=== PATIENT | male | born 1960 | race Caucasian/White ===

== ENCOUNTER → 2020-06-02 14:53 | Outpatient (CLI) | payer OTHER, SELFPAY ==
--- NOTE | 2020-06-02 | DI.RAD.S_ITS ---
PROCEDURE: XR HIP W PEL IF DONE LT MIN 4V INDICATIONS: primary generalized arthritis TECHNIQUE: AP pelvis with lateral view(s) of the bilateral hip(s). COMPARISON: None. FINDINGS: Bones: No fractures or dislocations. Pelvic ring appears intact. No suspicious bony lesions. There is severe bilateral degenerative hip joint space narrowing, right greater than left. Areas of subchondral sclerosis as well as lucency are present. There is minimal appearance of femoral head flattening notable on the right. Soft tissues: The visualized bowel gas pattern is normal. No suspicious soft tissue calcifications. 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 Dictated by: Maine Andrade M.D. on 06/02/2020 at 16:53 Approved by: Maine Andrade M.D. on 06/02/2020 at 16:53
--- NOTE | 2020-06-02 | DI.RAD.S_ITS ---
PROCEDURE: XR LUMBAR SPINE 2-3V INDICATIONS: primary generalized arthritis TECHNIQUE: 3 views of the lumbar spine were acquired. COMPARISON: [facility], , L-SPINE 2-3 VIEWS, 08/30/2011, 15:47. FINDINGS: Bones: 5 xsx-obh-[id number] vertebrae are present. There is multilevel trace retrolisthesis throughout the lumbar spine. Moderate to severe foraminal narrowing is present at L5-S1 as well as L4-5. Mild osteophytes are noted at multiple levels most severe at L1, L2 and L5. Overall appearance is minimally progressive compared to 2012. No vertebral body compression fractures. No suspicious bony lesions. Soft tissues: Overlying bowel gas pattern is normal. No suspicious soft tissue calcifications. IMPRESSION: Minimal progression of degenerative change most notable at L4-5 and L5-S1. Dictated by: Maine Andrade M.D. on 06/02/2020 at 16:54 Approved by: Maine Andrade M.D. on 06/02/2020 at 16:55
== END ==
PROVIDERS: PCP Physician Assistant Medical; Referring Provider Internal Medicine; Visit Provider Internal Medicine
DX: M15.0 Primary generalized (osteo)arthritis (principal); I10 Essential (primary) hypertension
CPT/HCPCS: 72100; 73522

== ENCOUNTER → 2020-09-07 09:49 | Outpatient (CLI) | payer OTHER, SELFPAY ==
[2020-09-07 11:39] LABS: COVID19 -Nasal RAPID Negative (Negative)
== END ==
PROVIDERS: PCP Physician Assistant Medical; Visit Provider Physician Assistant
DX: Z20.822 Contact with and (suspected) exposure to COVID-19 (principal)
CPT/HCPCS: 87635

== ENCOUNTER 2020-09-09 06:15 | Day surgery (SDC) | payer OTHER, SELFPAY ==
[2020-09-09] VITALS (15 sets, daily range): BP systolic 92–146; BP diastolic 51–91; PULSE 70–88; RESP 8–17; TEMP 36–37; O2SAT 88–100; BMI 27.8
--- NOTE | 2020-09-09 06:30 | DI.RAD.S_ITS ---
PROCEDURE: XR HIP W PEL IF DONE RT 2V INDICATIONS: INNER OP ANTERIOR HIP TECHNIQUE: 2 view(s) of the hip acquired. COMPARISON: [facility], CR, XR HIP W PEL IF DONE LALITO 3TO4V, 06/02/2020, 16:04. FINDINGS: Bones: Patient is status post right hip arthroplasty, with hardware components in expected positions. The hip joint appears congruent. The visualized bony structures appear intact. Soft tissues: Overlying postoperative changes are noted. No suspicious soft tissue densities. IMPRESSION: Normal alignment after right total hip arthroplasty. Dictated by: Kwasi Branham M.D. on 09/09/2020 at 12:13 Approved by: Kwasi Branham M.D. on 09/09/2020 at 12:14
[2020-09-09] MEDS: ACETAMINOPHEN 325 MG TABLET 975 MG PO (06:51)
[2020-09-09] MEDS: PREGABALIN 75 MG CAPSULE PO (06:51)
[2020-09-09] MEDS: CELECOXIB 200 MG CAPSULE PO (06:51)
[2020-09-09] MEDS: LACTATED RINGERS 1,000 ML 42 ML IV ×2 (06:51→10:27)
--- NOTE | 2020-09-09 07:34 | PM.PREOP ---
Pre-operative Note COVID-19 COVID-19 status: Negative Result date/Date tested (Pos, Neg/Pending): 09/07/20 Interval Note History & Physical reviewed/Exam performed by Physician: Yes Changes to H&P: No H&P completed within 30 days and has changed as indicated here:: Plan for right anterior JAYLEN
[2020-09-09] MEDS: CEFAZOLIN 2 GM/100 ML FROZ.PIGGY IV ×2 (07:50→17:27)
[2020-09-09] MEDS: TRANEXAMIC ACID 1,000 MG VIAL 1000 MG INJ ×2 (08:24→10:34)
--- NOTE | 2020-09-09 08:34 | SUR.OPER ---
Supine on padded [place] table with bilateral legs secured in padded positioning boots and suspended in positioning spars, operative leg in traction per surgeon. Head on one pillow. Arm on non-operative side secured on padded armboard <90 degrees abduction. Arm on operative side padded and resting across chest then secured with tape over sheet. Padded perineal post in place per surgeon.
[2020-09-09] MEDS: ROPIVACAINE 0.5% PF 5 MG/ML 20ML VIAL 60 ML INJ (08:40)
[2020-09-09] MEDS: KETOROLAC 30 MG/ML VIAL IV (08:41)
[2020-09-09] MEDS: MORPHINE 4 MG/ML INJ INJ (08:41)
--- NOTE | 2020-09-09 10:43 | PM.OP.1 ---
Operative Date/Time/Diagnoses Date of procedure: 09/09/20 Time of procedure: 10:43 Pre-op diagnosis: right hip OA Post-op diagnosis: same Procedure & Clinicians Procedure: Right anterior total hip arthroplasty Same procedure as scheduled: Yes Indications: Severe right hip osteoarthritis with loss of range of motion as well as pain resistant to further conservative measures Surgeon: Mitch Wang Supervisor [employer] Department: Kwasi Bowman Anesthesia Type: General and Spinal Operative Notes Findings: Large neck osteophytes, severe osteo arthritis. Closure Type: primary Specimen(s): none sent Prosthetic devices, grafts, tissues, transplants, or devices: [place] 54 mm R3 three-hole cup 2x 25 mm screws 54 mm x 36 mm neutral offset polyethylene liner Size 9 high offset anthology stem Size 7 standard offset anthology stem ( wasted) Delta Biolox 36+ 0 head Estimated Blood Loss (mL): 1,000 Blood products transfused: none Procedure in detail: Patient was met in the preoperative holding area where the site and side of surgery were marked by . Informed consent had been reviewed in clinic was also reviewed in the preoperative holding area. All last minute questions were answered. Patient was then brought back in the operating room where he received a spinal anesthetic. He was then placed supine on the [place] table. Bilateral feet were placed in well-padded [place] table boots. The right lower extremity was then prepped and draped in normal sterile fashion. A surgical time-out was performed verifying the site and side of surgery as well as the name of the patient. A 7 cm long incision based approximately 2 cm distal and 1 cm lateral to the ASIS aiming towards the fibular head was made in the skin with using 10. Blade. Electrocautery was then used to dissect down the level the tensor fascia. A new 10. Blade was then used to incise the tensor fascia Allis clamp was placed on the medial leaflet of the tensor fascia. At this point was noted a hip poor quality of the tensor fascia. The tensor muscle itself was reflected laterally and a Cobra was placed over the superior aspect of the femoral neck. A Meyerding was then placed over lateral aspect of the rectus femoris and retracted medially this gave us good exposure to the ascending branches of the femoral circumflex vessels these were then coagulated using electrocautery. A 2nd Cobra retractor was then placed under under the inferior aspect of the femoral neck and a bent Hohmann was placed over the anterior lip of the acetabulum to give this capsular exposure. Inverted T-shaped capsulotomy was then performed. At this point large neck osteophytes were noted. The retractors then placed intracapsularly which gave us femoral neck exposure. Reciprocating saw was then used to make a femoral neck cut a corkscrew was then used attempted to be used to remove the femoral head however it fragmented. Fragmented pieces were then removed using a rongeur. Retractors then replaced give us good acetabular exposure the remnant of the labrum was removed as well as a pole in our. I began reaming with a 46 mm Reamer to medialized and then began upsizing by 2s. When I got to a 50 mm Reamer fluoroscopy was brought in for final reaming. Fluoroscopic images were matched our templated preop standing films. I began reaming until I got to 52 mm Reamer at which point had good resistance at 53 mm Reamer was then reamed and 54 mm cup was selected. This was done to be placed however hand up on the rim. The cup was then removed and a 54 mm Reamer was then used to touch ream the rim of the acetabulum. The cup was then replaced and was able to be fully seated. Two screws were then placed both 25 mm in length. The neutral offset polyethylene liner was then placed make sure there is soft tissue not interfere between the polyethylene and the acetabular cup this was then malleted into place verifying all tabs were flush with the rim. Femoral elevator hook was then placed under the posterior aspect of the femur the femur was externally rotated to 120? extended to the floor and adducted. A bent Hohmann was then placed over the superior aspect of the superior leaflet and the capsule was the least off the inner shoulder of the greater trochanter. A large single prong cut was then placed over the greater trochanter and short external rotators were released in a controlled fashion. A Meyerding retractor was then placed over the medial calcar. A canal finer followed by a curette and rongeur were then used. A chili pepper broach was then used to lateralize and began broaching with a size 1 broach. It was obvious this point that the neck cut was conservative and there was a lot of remnant neck and neck osteophyte. A broach to a size 5 and then calcar planed and then broached to a size 7 at size 7 appeared to have good canal fit and rotational stability we trialed with a standard offset neck with a 36+ 0 this was reduced and was stable to maximal external rotation as well as external rotation 90? and extension to the floor. Fluoroscopy was brought in which showed relatively good canal fill. Also showed that we were 1-2 mm long on this side however he is likely going to need arthroplasty on left side is severe arthritis on this side with shortening. The hip was then dislocated and the trials removed a size 7 standard offset stem was then selected upon placing the stem it countersunk past the level of our neck cut. The hip was reduced and we had decreased ability in next maximal external rotation as well as subluxation of the hip with 90? of external rotation and extension to floor. Fluoroscopy was brought in no fractures were appreciated. The hip was then dislocated. At this point the stem was removed. I thoroughly interrogated the calcar did not appreciate any fractures. I then began broaching again and is able the subsequently broached to a size 9. Due to his decreased stability with initial trialing I selected a high offset stem. Ultimately a size 9 high offset anthology was placed which had good rotational stability again no calcar fractures were appreciated he had good quality bone at the calcar. A 36+ 0 Biolox Delta ceramic was then malleted onto the trunnion and reduced a final time. This was stable to maximal external rotation as well as external rotation 90? and extension to the floor. Fluoroscopy was brought in and the stem showed good canal fit and no fractures. Betadine solution was then placed in the wound allowed to sit for several minutes prior to being lavage with copious normal saline. Local anesthetic was then infiltrated in the periarticular soft tissues including the capsule. The capsule was then repaired using a running Ethibond suture followed by a running Vicryl suture in a running locking fashion in the tensor fascia followed by 2 0 Vicryl in interrupted fashion in the subcutaneous layer followed by 3-0 Stratafix in the subcuticular Dermabond and Aquacel dressing Complications: none Post-operative Condition: stable Disposition: PACU Plan for aftercare: 24 hours post op abx, ASA 81mg BID for 6 weeks, WBAT RLE
--- NOTE | 2020-09-09 10:55 | DI.RAD.S_ITS ---
PROCEDURE: XR PELVIS 1-2V INDICATIONS: POST OP RIGHT ANTERIOR HIP TECHNIQUE: 1 view(s) of the pelvis acquired. COMPARISON: None. FINDINGS: Bones: No fractures or dislocations. No suspicious bony lesions. A prior right total hip arthroplasty a shows no sign of loosening. Moderately severe to severe hip joint osteoarthritis is present at the left hip where emeo-gg-ibhb articulation is present. Soft tissues: Visualized bowel gas pattern is normal. No suspicious soft tissue calcifications. IMPRESSION: No trauma found. Normal right total hip arthroplasty. Near severe to severe hip joint osteoarthritis on the left with [id number]-[id number] articulation. Dictated by: Kwasi Branham M.D. on 09/09/2020 at 12:12 Approved by: Kwasi Branham M.D. on 09/09/2020 at 12:13
[2020-09-09] MEDS: OXYCODONE IR 5 MG TABLET PO ×2 (11:26→11:55)
[2020-09-09] MEDS: ONDANSETRON 4 MG/2 ML INJ IV (11:27)
[2020-09-09] MEDS: LACTATED RINGERS 1,000 ML 125 ML IV ×2 (12:40→21:03)
--- NOTE | 2020-09-09 13:15 | PT.IIE ---
Current Diagnoses Unilateral primary osteoarthritis, right hip (09/09/20) Surgery Performed Operation Date: 09/09/20 07:45 Actual Procedures p Total Hip Arthroplasty/Anterior Approach(Right) - Mitch Wang MD Surgical History (Last Updated 09/08/20 @ 09:08 by Katie Issa, RN) History of appendectomy Medical History (Last Updated 09/08/20 @ 09:11 by Katie Issa, RN) Bilateral primary osteoarthritis of hip Physical Therapy Inpatient Evaluation/Re-Eval M1 PT/OT-IP Prior Functional Status Start: 09/09/20 14:16 Freq: NEEDED Status: Active Protocol: Document 09/09/20 13:15 AB (Rec: 09/09/20 14:34 AB [id number]) Medical Review Prior Functional Status Medical History Reviewed Yes Communication pt is agreeable to do PT Mobility and Gait pt stated that he is independent with all mobilities and ambulation without AD but has been using a SPC for the last week due to hip pain Social History Household Members spouse Living Arrangements House Number of Floors (Floors) One Floor Number of Stairs To Enter/Railing? 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 pt stated that he has access to a shower chair pt has a standard walker M2 PT-IP Current Condition Start: 09/09/20 14:16 Freq: NEEDED Status: Active Protocol: Document 09/09/20 13:15 AB (Rec: 09/09/20 14:34 AB [id number]) Physical Therapy Current Condition Current Condition Evaluation Date 09/09/20 Treatment Diagnosis s/p R JAYLEN anterior approach; difficulty in walking Onset Date 09/09/20 Precautions Anterior Hip Precautions No Hip Extension,No Hip External Rotation Weight Bearing Status Weight Bearing Status Weight Bear as Tolerated Allowed Weight Bearing Amount (enter % RLE WBAT or #) (%) M3 PT-IP Subjective Start: 09/09/20 14:16 Freq: NEEDED Status: Active Protocol: Document 09/09/20 13:15 AB (Rec: 09/09/20 14:34 AB [email or web address]) Subjective Physical Therapy Visit Type Type Initial Evaluation Visit Start Time 13:15 Visit Stop Time 14:05 Total Visit Minutes 50 Number of PRODUCT PROMOTER RETAIL PET Visits 0 Physical Therapy Visit Comments Patient Comments pt is agreeable to do PT Therapy Pain Assessment Pain When Pain Assessed At Rest Pain Present Pain Present Pain Reported Location hip right Intensity 2 Scale Used Numeric (0 - 10) Pain Management Techniques Modification of Treatment,Re- positioning,Timing of Activity with Medications M4 PT-IP Mobility and Gait Start: 09/09/20 14:16 Freq: NEEDED Status: Active Protocol: Document 09/09/20 13:15 AB (Rec: 09/09/20 14:34 AB [id number]) PT-Bed Mobility Assessment Supine to Sit Supine to Sit Standby Assistance PT-Transfer Assessment Sit to and From Stand Sit to and from Stand Minimal Assistance,1 Person Assistance,Use of Upper Extremities Equipment Transfer Assistive Device Gait Belt,Front Wheeled Walker Orthotic/Prosthetic Devices or Brace: No Transfers Transfer Destination Chair Transfer Technique ambulated using standard walker Transfer Ability Level of Assist Minimal Assistance,1 Person Assistance,Use of Upper Extremities Comments Mobility Comments pt educated on R hip anterior precautions and pt was able to recall. BP in supine: 111/62 O2 sat: 96% at room air. completed supine to sit SBA. pt is able to sit on EOB SBA using UE for support. no c/o dizziness/lightheadedness. BP in sittin/75. completed sit to stand min A and was able to stand for a few seconds without any complaints . ambulated ~ 12 ft using standard walker. pt c/o dizziness during ambulation and instructed to sit back on chair but pt unable to follow instruction and have to be pulled and assisted to the chair by PT. pt with reclined into the chair. call light on for nurse assistance and PT came out to asked for assistance. BP checked reclined on chair: 69/39. repositioned pt on chair to further recline and BP checked again: 89/55. pt is now conversive. informed nurse regarding pt's unresponsiveness needed PT max assist to sit back on chair. BP checked again after ~ 2-3 min : 98/62. Left pt with nurse. Gait Assessment Gait Gait Assistance Required: Minimum Assistance Distance (Feet) 12 Able to Maintain Weight Bearing Status Yes During Gait Assistive Devices Assistive Device Gait Belt,Front Wheeled Walker Orthotic/Prosthetic Devices or Brace: No Gait Deviations General Gait Pattern Decreased Stride Length, Decreased Feet Clearance Factors Limiting Gait Function Factors Limiting Gait Function Decreased Activity Tolerance, Decreased Strength,Limited Range of Motion,Pain,Poor Balance,Poor Safety Awareness Comments Gait Comments pls refer to mobility section for details PT-Balance Assessment Sitting Balance and Reactions Static Sitting Balance Ability Good Dynamic Sitting Balance Ability Good Standing Balance and Reactions Static Standing Balance Ability Fair Dynamic Standing Balance Ability Fair Device Used standard walker M5 PT-IP Objective Assessments Start: 09/09/20 14:16 Freq: NEEDED Status: Active Protocol: Document 09/09/20 13:15 AB (Rec: 09/09/20 14:34 AB [id number]) Orientation Orientation/Cognition Level of Alertness Alert Orientation Name,Situation Language Function Ability No Deficits Noted Safety Awareness Understands Safety Issues Memory Description No Deficits Noted Strength Lower Extremity Strength Assessment Right Impaired Hip 3-/5 Knee 4-/5 Sensation Assessment Sensation Gross Sensation WNL Muscle Tone Muscle Tone WNL Yes M6 PT-IP Treatment Start: 09/09/20 14:16 Freq: NEEDED Status: Active Protocol: Document 09/09/20 13:15 AB (Rec: 09/09/20 14:34 AB [id number]) Physical Therapy Treatment Exercises Exercises Heel Slides Education Education Provided Precautions,Weight Bearing Status,Post-Op Packet,Safety Other Treatments Other Treatment Performed completed heel slides prior to mobilizing pt M7 PT-IP Assessment and Plan Start: 09/09/20 14:16 Freq: NEEDED Status: Active Protocol: Document 09/09/20 13:15 AB (Rec: 09/09/20 14:34 AB [email or web address]) PT Summary Assessment and Plan Potential Rehabilitation Potential Good Status of Condition at Evaluation Evolving Summary Impairments Pain,ROM,Strength,Balance, Coordination,Bed Mobility, Transfers,Gait,Activity Tolerance Assessment Summary pt s/p R JAYLEN anterior approach and just had surgery this morning. pt has episode of low BP 69/39 with unresponsiveness during PT session requiring max A to sit back on chair. will continue to assess progress and if appropriate will conduct caregiver training. pt also has 2 steps to enter without rails and will complete stair climbing training prior to d/c . Goals Bed Mobility Goal Independent Transfer Goal Independent Gait Goal Independent Gait Distance 200 Other Goals improve transfers and ambulation using standard walker up/down 2 steps using SPC Days to Meet Goals 3 Frequency of Treatment Frequency Of Treatment Twice a Day Treatment Plan Physical Therapy Treatment Plan Bed Mobility Training,Transfer Training,Gait Training, Therapeutic Exercise,Balance Retraining,Post Op Education, Discharge Planning,Hot or Cold Pack,Neuromuscular Re-ed, Coordination Retraining,Manual Therapy Precautions Anterior Hip Precautions No Hip Extension,No Hip External Rotation Recommendations To Nursing Amount of Assist Needed 1 Person Assist Discharge Recommendations PT Discharge Recommendations Home with Assistance, Outpatient PT Transportation Needs at Discharge Private Vehicle
[2020-09-09] MEDS: IBUPROFEN 400 MG TABLET PO ×3 (13:45→20:58)
--- NOTE | 2020-09-09 14:55 | PC.NURSE ---
While pt was working with PT, he had hypotensive episode. Amira from PT reports pt became unresponsive for a couple seconds and falling forward, requiring her to pull him to sit in the chair. She reclined him back and checked his BP: 69/39, checked again about 3 mins later: 89/55, 98/62, 105/53. Pt A&Ox4, reported lightheadedness during episode and appeared pale, but denied any after having been reclined and color returned to face. Pt remained in chair with close observation. Surgeon informed via fax to surgery, as he was currently performing a case.
--- NOTE | 2020-09-09 15:05 | DI.RAD.S_ITS ---
PROCEDURE: XR PELVIS 1-2V INDICATIONS: Post fall TECHNIQUE: 2 view(s) of the pelvis acquired. COMPARISON: [facility], CR, XR PELVIS 1-2V, 09/09/2020, 11:35. FINDINGS: Bones: No fractures or dislocations. No suspicious bony lesions. Prior right total hip arthroplasty shows no sign of disruption. Left hip joint demonstrates moderately severe degenerative osteoarthritis to the degree that xtzi-lz-ffxc articulation is present. Soft tissues: Visualized bowel gas pattern is normal. No suspicious soft tissue calcifications. IMPRESSION: Near severe hip joint osteoarthritis on the left, prior right total hip arthroplasty. No acute trauma found. Dictated by: Kwasi Branham M.D. on 09/09/2020 at 15:32 Approved by: Kwasi Branham M.D. on 09/09/2020 at 15:33
[2020-09-09] MEDS: ACETAMINOPHEN 325 MG TABLET 650 MG PO ×2 (15:16→20:58)
--- NOTE | 2020-09-09 16:04 | PC.NURSE ---
At 1500- Loud noise heard from outside pt's room, when entering room, pt was found to be supine on floor, alert and awake. RELOCATION DIRECTOR had been assisting him with urinal, attempting to void post operatively. They were attempting to check BP when pt fell foward. Pt assessed for injuries to head, he denied hitting his head, reporting only hitting his buttocks. Pt attempted to sit upright, and appeared pale and briefly appeared unresponsive and was slowly lowered back to floor with head placed on pillow. Seconds later, pt came to, A&Ox4. Chanda sling was obtained and placed beneath pt and pt was transferred by chanda lift to bed. BP obtained, 102/67, HR 89. IV was also found to be pulled out, RN evaluated IV catheter, tip was intact, and IV was disposed of. Bandaid placed on hand where IV was pulled. X-ray was ordered. Dr. Wang called, and informed by another property staff accountant member. Pt denies pain at head, reports pain only at R hip site. Bed alarm placed on pt. Per DOREEN Alcantara, pt was standing to attempt to use the urinal, he was asked to sit down but requested to have his BP checked again, as he had a hypotensive episode earlier, when she pushed the BP button and read the results, she turned to see pt falling foward.
[2020-09-09 17:43] LABS: Hematocrit 34.1 % (41-53); Hemoglobin 11.6 g/dL (13.5-17.5)
--- NOTE | 2020-09-09 19:42 | PC.NURSE ---
Pt has denies discomfort this evening. IVF of LR @ 125cc/hr infusing into the LAC via pump w/o incidences. Aquacell dsg to right anterior hip CDI. Dr Wang in to see pt, no new orders received. Pt 2 PA to sit at bedside to urinate. Voided 300 clear yellow urine. Call light w/in reach, bed alarm on for pt safety. Continue w/plan of care.
[2020-09-09] MEDS: SIMVASTATIN 20 MG TABLET 10 MG PO (20:57)
[2020-09-09] MEDS: DOCUSATE 100 MG CAPSULE PO (20:58)
[2020-09-09] MEDS: ASPIRIN EC 81 MG TABLET PO (20:58)
[2020-09-10] MEDS: IBUPROFEN 400 MG TABLET PO ×3 (00:10→08:29)
[2020-09-10] MEDS: CEFAZOLIN 2 GM/100 ML FROZ.PIGGY IV (00:11)
[2020-09-10 00:30] VITALS: BP 108/62; PULSE 84; RESP 18; TEMP 36.7; O2SAT 98
[2020-09-10 05:30] VITALS: BP 119/77; PULSE 69; RESP 18; TEMP 36.7; O2SAT 95
--- NOTE | 2020-09-10 08:14 | P.DS_ITS ---
History of Present Illness History of Present Illness Date Patient Seen: 09/10/20 Time Patient Seen: 08:14 Chief complaint: OPB Discharge Providers Provider Discharge Date: 09/12/20 Primary care physician: Nikolas Regalado MD Consults: 09/09/20 06:30 Consult to Anesthesiology Routine Comment: Consulting Provider: Anesthesiologist Reason for consultation: Regional block for post operative pain control 09/09/20 12:18 Consult to Discharge Planning Routine Comment: Consult to Physical Therapy Evaluate & Treat Comment: Physician Instructions: post op JAYLEN protocol Consult to Respiratory Therapy Evaluate & Treat Comment: Physician Instructions: Evaluate and treat Discharge provider: Kwasi Bowman PA-C Summary Hospital Course Discharge Diagnosis: Right hip osteoarthritis Status post total right hip arthroplasty via anterior approach Hospital Course: This is a 60-year-old male with the above-listed diagnoses that was consented for the above indicated procedure then presented the OR undergoing said procedure without difficulty or complications and was admitted to the hospital for rehabilitation and convalesced appropriately without issue and was stable for discharge home safely September 11, 2019. The patient verbalized understanding postoperative care instructions and agreed with plan for follow- up. Status at Discharge Cognitive/behavioral status at discharge: oriented Functional status at discharge: uses cane/walker Overall status at discharge: patient is progressing back to baseline Time Spent with Patient Time spent: Less than 30 minutes Exam Vital Signs (past 8 hours): - 09/10/20 00:30 09/10/20 05:30 Temperature 98.0 F 98.1 F Pulse Rate 84 69 Respiratory Rate 18 18 Blood Pressure 108/62 119/77 Pulse Oximetry 98 95 Oxygen Delivery Method Room Air Oxygen Flow Rate 0 Narrative Exam Narrative: This is 60-year-old male who was observed resting comfortably in no apparent distress and alert and oriented x3. He had a regular heart rate with normal inspiratory effort. His wound was clean, dry and intact. His extremity distal to the affected joint was neurovascularly intact with normal strength. He was negative for signs and symptoms of DVT bilaterally. Objective Labs Result Diagrams: 09/09/20 15:50 Labs: Laboratory Results - last 24 hr 09/09/20 15:50 Hgb 11.6 L Hct 34.1 L PFSH Medical History (Updated 09/08/20 @ 09:11 by Katie Issa RN) Bilateral primary osteoarthritis of hip Surgical History (Updated 09/08/20 @ 09:08 by Katie Issa RN) History of appendectomy Social History household members: spouse Smoking Status: Never smoker alcohol intake: current Discharge Assessment & Plan Assessment and Plan Assessment: Right hip osteoarthritis Status post total right hip arthroplasty via anterior approach Plan of Treatment: Discharge home September 10, 2020. Total hip anterior approach protocols for care and dislocation precautions apply. Recommending aspirin 81 mg b.i.d. for DVT prophylaxis for 6 weeks. Follow-up in 2 weeks for re-evaluation or sooner as needed. Discharge Plan Discharge Plan Patient Disposition: Home Discharge orders & Medications Discharge Orders: Discharge (Order); Ordered 09/10/20 Ordered By: Kwasi Bowman Prescriptions: New aspirin 81 mg Tablet,Delayed Release (Dr/Ec) 81 mg PO BID Qty: 90 RF: 0 oxycodone 5 mg Tablet 5 mg PO Q4-5H PRN (Reason: Pain, Moderate (4-6)) Qty: 60 RF: 0 Continued lisinopril 20 MG tablet 20 mg PO DAILY Qty: 0 RF: 0 simvastatin 10 MG tablet 10 mg PO DAILY Qty: 0 RF: 0 ibuprofen 200 mg Capsule 200 mg PO Q6H PRN (Reason: Pain) RF: 0 aspirin 81 mg Tablet 81 mg PO SEEINSTR RF: 0 Follow up/Referrals: Nikolas Regalado MD [Primary Care Provider] - Mitch Wang MD [Physician] - (F/U in 2 weeks) Diet/Activity/Treatments Diet: Diet as Tolerated Activity: WBAT RLE Cold/Heat Therapy: ICe 20 min / hr as tolerated. Skin/Wound/Dressing Care Report to your healthcare provider any signs of infection, such as:: chills, fever, night sweats, increased pain, unusual drainage and unusual redness Dressing: Kepp CDI Visit Report/Discharge Packet Instructions: DI for Hip Replacement Stand Alone Forms: Surgery Discharge Discharge Data Primary Care Provider: Nikolas Regalado Attending Provider: Mitch Wang
[2020-09-10 08:27] VITALS: BP 122/76
[2020-09-10] MEDS: DOCUSATE 100 MG CAPSULE PO (08:27)
[2020-09-10] MEDS: lisinopriL 20 MG TABLET PO (08:27)
[2020-09-10] MEDS: ACETAMINOPHEN 325 MG TABLET 650 MG PO (08:29)
[2020-09-10] MEDS: ASPIRIN EC 81 MG TABLET PO (08:29)
[2020-09-10 08:40] VITALS: BP 122/76; PULSE 82; RESP 18; TEMP 36.6; O2SAT 97
--- NOTE | 2020-09-10 09:12 | PT.IPTN ---
Current Diagnoses Unilateral primary osteoarthritis, right hip (09/09/20) Surgery Performed Operation Date: 09/09/20 07:45 Actual Procedures p Total Hip Arthroplasty/Anterior Approach(Right) - Mitch Wang MD Physical Therapy Treatment Note M2 PT-IP Current Condition Start: 09/09/20 14:16 Freq: NEEDED Status: Discharge Protocol: Document 09/09/20 13:15 AB (Rec: 09/09/20 14:34 AB [email or web address]) Physical Therapy Current Condition Current Condition Evaluation Date 09/09/20 Treatment Diagnosis s/p R JAYLEN anterior approach; difficulty in walking Onset Date 09/09/20 Precautions Anterior Hip Precautions No Hip Extension,No Hip External Rotation Weight Bearing Status Weight Bearing Status Weight Bear as Tolerated Allowed Weight Bearing Amount (enter % RLE WBAT or #) (%) M3 PT-IP Subjective Start: 09/09/20 14:16 Freq: NEEDED Status: Discharge Protocol: Document 09/10/20 09:12 AB (Rec: 09/10/20 11:58 AB [email or web address]) Subjective Physical Therapy Visit Type Type Treatment Note Visit Start Time 09:12 Visit Stop Time 09:53 Total Visit Minutes 41 Number of CRYSTAL FINISHER Visits 0 Physical Therapy Visit Comments Patient Comments pt is agreeable to do PT; no c /o other pain aside from hip pain s/p fall. Therapy Pain Assessment Pain When Pain Assessed At Rest Pain Present Pain Present Pain Reported Location hip right Intensity 2 Scale Used Numeric (0 - 10) Description Tightness Pain Management Techniques Apply Cold,Modification of Treatment,Re-positioning, Timing of Activity with Medications M4 PT-IP Mobility and Gait Start: 09/09/20 14:16 Freq: NEEDED Status: Discharge Protocol: Document 09/10/20 09:12 AB (Rec: 09/10/20 11:58 AB [email or web address]) PT-Transfer Assessment Sit to and From Stand Sit to and from Stand Standby Assistance Equipment Transfer Assistive Device Gait Belt,Standard Walker Orthotic/Prosthetic Devices or Brace: No Transfer Ability Level of Assist Standby Assistance,Contact Guard Assistance Comments Mobility Comments reviewed hip precautions with pt and required cues to recall . BP monitored. pt sitting on chair. BP: 111/62. completed sit to stand SBA and cues. pt with increase UE use to get up. pt was able to stand using std walker for support. BP checked: 108/64. pt stood for another 2 min and BP checked again in standin/72 pt without complaints. ambulated in room using std walker initially with CGA for safety ~ 15 ft. checked BP again in sitting position after ambulation: 120/72. educated pt on sit<>stand techniques and completed x 5 requiring SBA with less use of UE. pt educated on stair climbing using SPC. ambulated 40 ft using std walker SBA. completed up/down platform step using SPC and L side wall (simulating home bookcase per pt) CGA. completed x 2 sets. offered caregiver training and pt refused. stated that he is comfortable moving and spouse will know how to assist her. pt ambulated back to his room. positioned on chair. BP at end of tx session in sittin/72. call light and table placed within reach. Gait Assessment Gait Gait Assistance Required: Standby Assistance,Contact Guard Assist Distance (Feet) 40 Able to Maintain Weight Bearing Status Yes During Gait Assistive Devices Assistive Device Gait Belt,Standard Walker Orthotic/Prosthetic Devices or Brace: No Factors Limiting Gait Function Factors Limiting Gait Function Decreased Activity Tolerance, Decreased Strength,Pain,Poor Balance,Poor Safety Awareness Comments Gait Comments pls refer to mobility section for details Stair Climbing Assessment Evaluation Level of Assist On Stairs Contact Guard Assistance Devices Stair Climbing Assistive Devices Straight Cane,Left Railing Technique/Endurance Stair Climbing Direction Ascend and Descend Stair Climbing Technique Step to Step Number of Steps Climbed 2 Stair Climbing Set # Repetitions (reps) 2 M5 PT-IP Objective Assessments Start: 09/09/20 14:16 Freq: NEEDED Status: Discharge Protocol: Document 09/09/20 13:15 AB (Rec: 09/09/20 14:34 AB [email or web address]) Orientation Orientation/Cognition Level of Alertness Alert Orientation Name,Situation Language Function Ability No Deficits Noted Safety Awareness Understands Safety Issues Memory Description No Deficits Noted Strength Lower Extremity Strength Assessment Right Impaired Hip 3-/5 Knee 4-/5 Sensation Assessment Sensation Gross Sensation WNL Muscle Tone Muscle Tone WNL Yes M6 PT-IP Treatment Start: 09/09/20 14:16 Freq: NEEDED Status: Discharge Protocol: Document 09/10/20 09:12 AB (Rec: 09/10/20 11:58 AB [email or web address]) Physical Therapy Treatment Education Education Provided Precautions,Safety M7 PT-IP Assessment and Plan Start: 09/09/20 14:16 Freq: NEEDED Status: Discharge Protocol: Document 09/10/20 09:12 AB (Rec: 09/10/20 11:58 AB [email or web address]) PT Summary Assessment and Plan Potential Rehabilitation Potential Good Summary Impairments Pain,ROM,Strength,Balance, Coordination,Sensation,Tone, Cognition,Bed Mobility, Transfers,Gait,Activity Tolerance Assessment Summary pt requiring SBA to CGA with mobility using std walker. refused caregiver training but spouse will be able to assist as needed. pt plans to go home today and is set up for outpt PT. Goals Bed Mobility Goal Independent Transfer Goal Independent Gait Goal Independent Gait Distance 200 Other Goals improve transfers and ambulation using standard walker up/down 2 steps using Days to Meet Goals 3 Frequency of Treatment Frequency Of Treatment Twice a Day Treatment Plan Physical Therapy Treatment Plan Bed Mobility Training,Transfer Training,Gait Training, Therapeutic Exercise,Balance Retraining,Post Op Education, Discharge Planning,Hot or Cold Pack,Neuromuscular Re-ed, Coordination Retraining,Manual Therapy Precautions Anterior Hip Precautions No Hip Extension,No Hip External Rotation Recommendations To Nursing Amount of Assist Needed 1 Person Assist Discharge Recommendations PT Discharge Recommendations Home with Assistance, Outpatient PT Transportation Needs at Discharge Private Vehicle
--- NOTE | 2020-09-10 10:37 | CM.DANOTE ---
DCP: Case received, EMR reviewed and met with patient. Introduced self and role. Was able to obtain information from patient regarding his baseline activity status prior to surgery. DCP assessment completed with information currently available. Patient is a 60 year old male who admitted yesterday morning to the care of the orthopedic team. PCP: Dr. Regalado. Payer: confirmed: [facility]. Patient came to the hospital via private vehicle for a surgical procedure. He had right total hip arthroplasty. Patient has had history of osteoarthritis. Met with patient in his room. He was sitting up in chair, pleasant. 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 He has a cane for use if he needs it at baseline. He is looking forward to going home so he can ride his motorcycle. He resides in [place] with his spouse, Julia. P: Patient had discharge orders for home today. Gail Abbasi RN/Copyright Manager
--- NOTE | 2020-09-10 10:59 | PC.NURSE ---
Day shift note: Patient awake, alert, and oriented. Discharge instructions given to both patient and spouse (Julia) and cleared by PT. Dressed self with minimal assistance. Discussed importance of F/U with PMD, dressing care, new medication, mobility precautions, and s/sx of infections. Both verbalized understanding of instructions. Home via private vehicle, accompanied by spouse.
== END 2020-09-10 11:11 | disposition home or self-care (01) ==
LOC: OR 06:16 → AC 06:20
PROVIDERS: PCP Internal Medicine; Referring Provider Orthopaedic Surgery Adult Reconstructive Orthopaedic Surgery; Visit Provider Orthopaedic Surgery Adult Reconstructive Orthopaedic Surgery
PROC: (CPT 27130; principal; 2020-09-09 07:45)
DX: M16.11 Unilateral primary osteoarthritis, right hip (principal)
CPT/HCPCS: 27130; 72170; 73502; 76000; 85014; 85018; 94760; 97116; 97162; 97530; C1776; J0690; J1100; J1885; J2250; J2270; J2405; J2704; J3010

== ENCOUNTER → 2020-11-24 12:33 | Outpatient (CLI) | payer OTHER, SELFPAY ==
[2020-09-09 12:22] VITALS: BMI 27.8
--- NOTE | 2020-11-24 | DI.US.S_ITS ---
PROCEDURE: US ABDOMEN LIMITED INDICATIONS: ELEVATED LIVER ENZYMES TECHNIQUE: Real-time focused scanning was performed of the abdomen, with image documentation. COMPARISON: None. FINDINGS: Relatively prominent hepatic steatosis. No liver mass lesion seen. No gallbladder pathology identified and the bile ducts are normal in caliber at 4 mm. The pancreas visualized appears normal. IMPRESSION: Hyperechoic liver echotexture consistent with hepatic steatosis. No biliary distension or evidence of gallstones or acute cholecystitis is found. Dictated by: Kwasi Branham M.D. on 11/24/2020 at 15:02 Approved by: Kwasi Branham M.D. on 11/24/2020 at 15:03
== END ==
PROVIDERS: PCP Internal Medicine; Referring Provider Internal Medicine; Visit Provider Internal Medicine
DX: R74.8 Abnormal levels of other serum enzymes (principal)
CPT/HCPCS: 76705

== ENCOUNTER → 2020-12-21 13:16 | Outpatient (CLI) | payer OTHER, SELFPAY ==
[2020-09-09 12:22] VITALS: BMI 27.8
[2020-12-21 15:47] LABS: COVID19 -Nasal RAPID Negative (Negative)
== END ==
PROVIDERS: PCP Internal Medicine; Visit Provider Physician Assistant
DX: Z01.812 Encounter for preprocedural laboratory examination (principal)
CPT/HCPCS: 87635

== ENCOUNTER 2020-12-23 06:30 | Day surgery (SDC) | payer OTHER, SELFPAY ==
[2020-09-09 12:22] VITALS: BMI 27.8
[2020-12-18 08:29] VITALS: BMI 28.5
[2020-12-23] VITALS (17 sets, daily range): BP systolic 86–134; BP diastolic 40–92; PULSE 57–96; RESP 12–18; TEMP 35.7–36.8; O2SAT 96–98; BMI 28.5
--- NOTE | 2020-12-23 | DI.RAD.S_ITS ---
PROCEDURE: XR PELVIS 1-2V INDICATIONS: INTER OP TECHNIQUE: 1 operative view of the left hip acquired COMPARISON: [facility], , XR PELVIS 1-2V, 09/09/2020, 15:11. FINDINGS: Operative imaging was utilized for performance of a total left hip arthroplasty. There is no radiographic evidence of complications. IMPRESSION: Operative imaging utilized for performance of a total left hip arthroplasty. Dictated by: Jose Alejandro Garcia M.D. on 12/23/2020 at 11:44 Approved by: Jose Alejandro Garcia M.D. on 12/23/2020 at 11:45
[2020-12-23] MEDS: ACETAMINOPHEN 325 MG TABLET 975 MG PO (07:14)
[2020-12-23] MEDS: GABAPENTIN 300 MG CAPSULE PO (07:15)
[2020-12-23] MEDS: CELECOXIB 200 MG CAPSULE 400 MG PO (07:15)
[2020-12-23] MEDS: LACTATED RINGERS 1,000 ML 42 ML IV ×4 (07:15→09:59)
--- NOTE | 2020-12-23 07:36 | PM.PREOP ---
Pre-operative Note COVID-19 COVID-19 status: Negative Result date/Date tested (Pos, Neg/Pending): 12/21/20 Interval Note History & Physical reviewed/Exam performed by Physician: Yes Changes to H&P: No H&P completed within 30 days and has changed as indicated here:: Plan for Left anterior JAYLEN
--- NOTE | 2020-12-23 07:38 | DI.RAD.S_ITS ---
PROCEDURE: XR PELVIS 1-2V INDICATIONS: post-op TECHNIQUE: 1 view(s) of the pelvis acquired. COMPARISON: [facility] [place], CR, XR PELVIS WITH LATERAL HIP RIGHT, 10/20/2020, 13:36. [facility], CR, XR PELVIS 1-2V, 12/23/2020, 9:04. FINDINGS: Bones: Postsurgical change bilateral hip arthroplasty. Orthopedic hardware is in expected position. Soft tissues: Visualized bowel gas pattern is normal. No suspicious soft tissue calcifications. IMPRESSION: Expected postsurgical change for arthroplasties. Dictated by: Caryn Murdock MD, PhD on 12/23/2020 at 11:36 Approved by: Caryn Murdock MD, PhD on 12/23/2020 at 11:37
[2020-12-23] MEDS: CEFAZOLIN 1 GM VIAL 2 GM IV ×2 (08:22→15:46)
[2020-12-23] MEDS: TRANEXAMIC ACID 1,000 MG VIAL 2000 MG INJ ×2 (08:23→09:46)
--- NOTE | 2020-12-23 08:54 | SUR.OPER ---
Supine on padded [place] table with bilateral legs secured in padded positioning boots, bilateral feet wrapped in cast padding and coban and suspended in positioning spars, operative leg in traction per surgeon. Head on one pillow. Arm on non-operative side secured on padded armboard <90 degrees abduction. Arm on operative side padded and resting across chest then secured with tape over sheet. Padded perineal post in place per surgeon.
[2020-12-23] MEDS: KETOROLAC 30 MG/ML VIAL IV (09:14)
[2020-12-23] MEDS: MORPHINE 4 MG/ML INJ INJ (09:14)
[2020-12-23] MEDS: ROPIVACAINE 0.5% PF 5 MG/ML 20ML VIAL 60 ML INJ (09:15)
[2020-12-23] MEDS: POVIDONE-IODINE SPONGE STICKS 1 APPLIC TOP (10:00)
--- NOTE | 2020-12-23 10:17 | PM.OP.1 ---
Operative Date/Time/Diagnoses Date of procedure: 12/23/20 Pre-op diagnosis: n Post-op diagnosis: same Procedure & Clinicians Procedure: left anterior JAYLEN Same procedure as scheduled: Yes Indications: Left hip osteoarthritis resistant to further conservative measures Surgeon: Mitch Wang Business Proposal Rep: Barak Samson Anesthesia Type: General and Spinal Operative Notes Findings: Left hip osteoarthritis with [id number] articulation and large osteophytes. Closure Type: primary Specimen(s): none sent Prosthetic devices, grafts, tissues, transplants, or devices: South and nephew 56 mm R3 cup 1x 25mm screw 1x 15mm screw 56 mm x 36 mm neutral offset polyethylene liner Size 8 high offset anthology stem 36-3 Oxinium head Estimated Blood Loss (mL): 1,100 Procedure in detail: Patient was met in the preoperative holding area where the site and side of surgery marked by . Informed consent had been reviewed signed in clinic was also reviewed the preop holding area and all last minute questions were answered. Patient then brought back to the operating room where he received is a spinal anesthetic. He was then transferred on the [place] table. He was induced under general anesthesia. Bilateral feet placed in well-padded hand table boots. The left lower extremity was then prepped and draped in normal sterile fashion. Surgical time-out was performed verifying the site and side of surgery as well and the patient. A 7 cm long incision approximately 2 cm distal and 1 cm lateral to the ASIS aiming towards the fibular head was made the skin using 10. Blade. Electrocautery was then used to dissect down to the level of the tensor fascia 10. Blade was then used to incise the tensor fascia. Endoscopist placed on the medial leaflet of the tensor fascia and the tensor muscles off of the reflected laterally and a Cobra was placed over the superior aspect of the femoral neck. The ascending branches of the femoral circumflex vessels were then coagulated using Aquamantys. A 2nd Cobra retractors then placed on the inferior aspect of the femoral neck and a bent Hohmann was then placed over the anterior lip of the acetabulum to give us capsular exposure inverted T-shaped capsulotomy was then performed the inferior and superior leaflets were then tagged with a FiberWire suture. Cobra retractors then placed intracapsularly. This gave us good exposure the femoral neck femoral neck cut was then used used made using a reciprocating saw I based off of our preoperative template. [place] was then used to remove the femoral head. Remnant of the labrum was then removed. Soft tissue sleeve protector was then placed. Pole in our was then removed a began reaming with a 45 mm Reamer to medialized then switched to 46 mm Reamer then up sized by 2s until I got to a 52 mm Reamer. The Lasso reamers then reamed under fluoroscopic guidance based off our preoperative template standing films. I finished with the 55 mm Reamer and selected 56 mm 3 hole R3 cup. This was then malleted into place under fluoroscopic guidance and subsequently 2 screws were then placed. The polyethylene liner was then placed make sure the tabs were flushed with the acetabular rim and well locked. Next I turned my attention to the femoral side femoral elevator hook was placed on the posterior aspect of the femur the femur was then externally rotated to 115? of external rotation extensive floor and adducted. A bent Hohmann was placed over the superior aspect the superior leaflet of the capsulotomy is then further released off the inner shoulder of the greater trochanter give us exposure the short external rotators. Electrocautery was then used to perform the controlled release of the short external rotators and the femur was then subsequently elevated further up into the wound to give us exposure. A Gaspar retractor was then placed over the medial calcar. A canal finer was then used followed by christ medley followed by size 1 broach I then began upsizing by 1 until I got to a size 6 broach I then calcar planed off the size 6 broach and then upsized to more broach sizes to a size 8. I then trialed with a high offset trial with a 36+ 0 head the hip was reduced and found to be stable to maximal external rotation as well as external rotation 90? extension of floor. Fluoroscopy was brought in which showed that we were several mm long on the operative side. Then dislocated the hip removed the trial components and tried to countersink the 8. Broach this countersunk may be a mm. I the selected a size 8 high offset anthology stem malleted this into place and selected a 36- 3 Oxinium head and malleted this onto the trunnion. Hip was then reduced a final time taken through range of motion again and found to be stable in maximal external rotation as well as external rotation 90? extension to the floor. Local anesthetic was then infiltrated in the periarticular soft tissues including the capsulotomy. Betadine solution was then placed in the wound final fluoroscopic imaging was obtained. I then lavaged the hip with copious normal saline repaired the capsulotomy with a running Ethibond suture remove the FiberWire tag sutures next I then closed the tensor fascia layer with a running locking 1. Vicryl followed by 2 Vicryl in subcutaneous layer followed by 3-0 running Stratafix followed by Dermabond and Aquacel dressing. Post-operative Condition: stable Disposition: PACU Plan for aftercare: 24 hours postop antibiotics, aspirin 81 mg b.i.d. for 6 weeks for DVT prophylaxis, weight-bearing as tolerated left lower extremity
[2020-12-23] MEDS: LACTATED RINGERS 1,000 ML 125 ML IV ×2 (11:39→20:45)
[2020-12-23] MEDS: CELECOXIB 200 MG CAPSULE PO (11:49)
--- NOTE | 2020-12-23 12:25 | PC.NURSE ---
@1115 pt transferred to floor from PACU; VSS; RA=97% continuous pulse oximeter, ZQ=[id number]; SCDs active; Aquacell c/d/i and ice to left hip; sensation above thighs; ppp; ankle waves; IV fluids infusing; general diet for lunch; ice water at bedside
--- NOTE | 2020-12-23 13:45 | PT.IPTN ---
Current Diagnoses Unilateral primary osteoarthritis, left hip (12/23/20) Surgery Performed Operation Date: 12/23/20 07:45 Actual Procedures p Total Hip Arthroplasty/Anterior Approach(Left) - Mitch Wang MD Physical Therapy Treatment Note M3 PT-IP Subjective Start: 12/23/20 13:45 Freq: NEEDED Status: Active Protocol: Document 12/23/20 13:45 AB (Rec: 12/23/20 13:49 AB [email or web address]) Subjective Physical Therapy Visit Type Type Administrative Note Notes checked on pt but refused PT. pt stated that he is nauseated and does not think he can do PT at this time. BP also on the low side 98/63. pt was here in the hospital last september 09, 2020 for his RTHA and has h/o symptomatic low BP with h/o fall due to low BP. will check pt tomorrow.
[2020-12-23] MEDS: IBUPROFEN 400 MG TABLET PO ×2 (14:56→20:27)
[2020-12-23] MEDS: ACETAMINOPHEN 325 MG TABLET 650 MG PO ×2 (14:56→20:27)
[2020-12-23] MEDS: LACTATED RINGERS 1,000 ML 1000 ML IV (18:01)
--- NOTE | 2020-12-23 18:39 | PC.NURSE ---
Addendum entered by Mary Lou Chavez R.N. 12/23/20 23:10: bladder scan 408cc. pt would like to wait another hour to try and void Addendum entered by Mary Lou Chavez R.N. 12/23/20 22:37: may place indwelling moreno if needed per provider Addendum entered by Mary Lou Chavez R.N. 12/23/20 20:54: BP 90/56. in bed, sitting position, denies dizziness, light headedness or nausea. Original Note: pt A&OX4. pt had 200cc emesis, but refused zofran. pt reports he is feeling okay. tho no appetite for dinner. pt last voided around 0700, we tried stand him up on the side of the bed, but BP dropped to 78/39, pt was diaphoretic and nauseous. BP back to low 90's when laying down. notified Dr. Wang. VTO for 1L LR bolus. Bladder scan was 184cc.
[2020-12-23] MEDS: DOCUSATE 100 MG CAPSULE PO (20:27)
[2020-12-23] MEDS: ASPIRIN EC 81 MG TABLET PO (20:27)
[2020-12-24] MEDS: CEFAZOLIN 1 GM VIAL 2 GM IV (00:57)
[2020-12-24] MEDS: IBUPROFEN 400 MG TABLET PO ×4 (00:58→13:49)
[2020-12-24 04:05] VITALS: BP 134/73; PULSE 83; RESP 16; TEMP 36.6; O2SAT 97
[2020-12-24 04:17] VITALS: BP 118/69; PULSE 86
[2020-12-24 06:50] LABS: Hematocrit 31.8 % (41-53); Hemoglobin 10.4 g/dL (13.5-17.5)
[2020-12-24 07:33] VITALS: BP 124/65; PULSE 77; RESP 16; TEMP 37; O2SAT 98
--- NOTE | 2020-12-24 07:36 | PM.PNPO.1 ---
Subjective Subjective Date Patient Seen: 12/24/20 Time Patient Seen: 07:37 Interval history: Patient states he is doing well overall and is in minimal discomfort at rest. At this time he denies fever, chills, nausea, chest pain, shortness of breath, or urinary retention. He reports good sensation throughout the bilateral lower extremities. He notes that he is looking forward to working with physical therapy and ultimately being discharged home. Exam Vital Signs (past 8 hours): - 12/23/20 23:59 12/24/20 04:05 12/24/20 04:17 Temperature 97.8 F 97.8 F Pulse Rate 96 H 83 86 Respiratory Rate 16 16 Blood Pressure 109/57 L 134/73 118/69 Pulse Oximetry 97 97 Oxygen Delivery Method Room Air Oxygen Flow Rate 0 Narrative Exam Narrative: 60-year-old male postop day 1 status post left total hip arthroplasty anterior approach. Patient is resting comfortably in bed, is in no acute distress, is alert and oriented x3. Skin is warm and dry, skin surrounding the incision site is free of erythema, warmth, induration, or discharge. Aquacel dressing over the incision site is clean, dry, and intact. Good sensation appreciated throughout the bilateral lower extremities light touch. Ankle dorsiflexion, plantar flexion, eversion, inversion performed bilaterally without difficulty or discomfort. DP pulses palpated. Calves soft nontender, negative Homans sign. No other signs of DVT appreciated. Const General: cooperative, healthy appearing and comfortable Resp Effort & Inspection: normal respiratory effort and able to speak in complete sentences Skin General: no rashes or lesions noted Objective Labs Result Diagrams: 12/24/20 06:15 Labs: Laboratory Results - last 24 hr 12/24/20 06:15 Hgb 10.4 L Hct 31.8 L [facility] Medical History Bilateral primary osteoarthritis of hip Hepatic steatosis (11/24/20) HLD (hyperlipidemia) HTN (hypertension) Surgical History History of appendectomy History of total right hip arthroplasty (09/09/20) Social History household members: spouse Smoking Status: Never smoker alcohol intake: current Assessment & Plan Post-op Postoperative Procedures: Procedures Operation Date: 12/23/20 07:45 Actual Procedure Side Surgeon p Total Hip Arthroplasty/Anterior Approach Left Mitch Wang MD Postoperative day: 1 Postoperative status: doing well Postoperative plan: ambulate Postoperative plan narrative: Patient is to work on ambulation with the assistance of a front wheeled walker with physical therapy. Current pain management regimen is to be continued as it is adequately controlled the patient's pain level. Aspirin 81 mg twice daily is to be continued for DVT prophylaxis along with the assistance of sequential compression devices. Pending successful work with PT discharge likely home either today or tomorrow. Quality VTE Deep Vein Thrombosis/Pulmonary Embolism Present on Admission: No
[2020-12-24] MEDS: ACETAMINOPHEN 325 MG TABLET 650 MG PO (08:39)
[2020-12-24 08:40] VITALS: BP 124/65; PULSE 77
[2020-12-24] MEDS: DOCUSATE 100 MG CAPSULE PO (08:40)
[2020-12-24] MEDS: ASPIRIN EC 81 MG TABLET PO (08:40)
[2020-12-24] MEDS: lisinopriL 20 MG TABLET PO (08:40)
[2020-12-24] MEDS: ATORVASTATIN 20 MG TABLET 10 MG PO (08:40)
--- NOTE | 2020-12-24 09:40 | PC.NURSE ---
Addendum entered by Stacy Noe R.N. 12/24/20 14:48: Patient and eager to discharge. Patient given in-depth instructions regarding s/s of infection, wound care, f/u appointment with ortho, activity measures, fall risks and medications. Patient verbalized understanding. Iv's removed. Patient tolerated. Patient dressed with 's assistance. Patient walked to elevators using FWW. Then discharged via wheelchair with aide assist. Original Note: Patient up to restroom this AM. Tolerating pain at sx site with scheduled medications, endorses 2/10 pain. Aquacel has pinpoint strike-through drainage, dry, intact. BLE pulses equal, no edema noted. Patient ambulating appropriately with walker. Calls before getting OOB. VSS, pressures remain stable. RA, 98%, lungs CTA. Saline locked. Tolerating diet, voiding, no BM at this time +flatus. Denies further needs at this time. Call light in reach.
--- NOTE | 2020-12-24 09:50 | PT.IIE ---
Current Diagnoses Unilateral primary osteoarthritis, left hip (12/23/20) Surgery Performed Operation Date: 12/23/20 07:45 Actual Procedures p Total Hip Arthroplasty/Anterior Approach(Left) - Mitch Wang MD Medical History (Last Reviewed 12/24/20 @ 07:39 by Yaniv Cullen PA-C) Bilateral primary osteoarthritis of hip Hepatic steatosis (11/24/20) HLD (hyperlipidemia) HTN (hypertension) Physical Therapy Inpatient Evaluation/Re-Eval M1 PT/OT-IP Prior Functional Status Start: 12/23/20 13:45 Freq: NEEDED Status: Active Protocol: Document 12/24/20 09:50 AB (Rec: 12/24/20 13:18 AB [email or web address]) Medical Review Prior Functional Status Medical History Reviewed Yes Communication able to make needs known Mobility and Gait pt stated that he is independent with all mobilities and ambulation without AD Social History Household Members spouse Living Arrangements House Number of Floors (Floors) One Floor Number of Stairs To Enter/Railing? 2 steps without rails with L side sturdy cabinet for support and uses SPC Home Environment Standard Height Toilet,Walk in Shower Home Equipment Straight Cane,Raised Toilet Seat Without Armrests Additional Social History Comment pt has a standard walker M2 PT-IP Current Condition Start: 12/23/20 13:45 Freq: NEEDED Status: Active Protocol: Document 12/24/20 09:50 AB (Rec: 12/24/20 13:18 AB [id number]) Physical Therapy Current Condition Current Condition Evaluation Date 12/24/20 Treatment Diagnosis s/p L JAYLEN anterior approach; difficulty in walking Onset Date 12/23/20 Precautions Anterior Hip Precautions No Hip Extension,No Hip External Rotation Weight Bearing Status Weight Bearing Status Weight Bear as Tolerated Allowed Weight Bearing Amount (enter % LLE WBAT or #) (%) M3 PT-IP Subjective Start: 12/23/20 13:45 Freq: NEEDED Status: Active Protocol: Document 12/24/20 09:50 AB (Rec: 12/24/20 13:18 AB [email or web address]) Subjective Physical Therapy Visit Type Type Initial Evaluation Visit Start Time 09:50 Visit Stop Time 10:25 Notes 35 Number of BUSH HOG OPERATOR Visits 0 Physical Therapy Visit Comments Patient Comments pt stated that he is feeling better Therapy Pain Assessment Pain When Pain Assessed At Rest Pain Present Pain Present Pain Reported Location Left Hip Intensity 2 Scale Used Numeric (0 - 10) Pain Management Techniques Modification of Treatment,Re- positioning,Timing of Activity with Medications M4 PT-IP Mobility and Gait Start: 12/23/20 13:45 Freq: NEEDED Status: Active Protocol: Document 12/24/20 09:50 AB (Rec: 12/24/20 13:18 AB [email or web address]) PT-Bed Mobility Assessment Supine to Sit Supine to Sit Standby Assistance Sit to Supine Sit to Supine Independent PT-Transfer Assessment Sit to and From Stand Sit to and from Stand Standby Assistance Equipment Transfer Assistive Device Gait Belt,Standard Walker Orthotic/Prosthetic Devices or Brace: No Transfers Transfer Destination Bed,Chair Transfer Technique ambulated Transfer Ability Level of Assist Standby Assistance,1 Person Assistance,Use of Upper Extremities Comments Mobility Comments reviewed anterior hip precautions with pt. BP sittin/61. pt completed sit to stand from chair SBA. able to stand SBA using std walker for support SBA. BP in standin/61. pt was able to stand for 2 more minutes and BP checked again: 110/66. pt ambulated towards the bed using FWW ~ 15 ft SBA. completed sit<>supine SBA. pt agreed to walk in the hallway. completed ambulation using std walker ~ 150 ft. completed up/down steps using L rail ascending and SPC on other hand SBA. ambulated back to his room SBA. sat up on chair. call light and table withith reach. Gait Assessment Gait Gait Assistance Required: Standby Assistance Distance (Feet) 150 Able to Maintain Weight Bearing Status Yes During Gait Assistive Devices Assistive Device Gait Belt,Front Wheeled Walker Orthotic/Prosthetic Devices or Brace: No Factors Limiting Gait Function Factors Limiting Gait Function Decreased Activity Tolerance, Decreased Strength,Limited Range of Motion,Pain,Poor Balance Stair Climbing Assessment Evaluation Level of Assist On Stairs Standby Assistance Devices Stair Climbing Assistive Devices Straight Cane,Left Railing Technique/Endurance Stair Climbing Direction Ascend and Descend Stair Climbing Technique Step to Step Number of Steps Climbed 3 Query Text: Stair Climbing Set # Repetitions (reps) 1 PT-Balance Assessment Sitting Balance and Reactions Static Sitting Balance Ability Normal Dynamic Sitting Balance Ability Normal Standing Balance and Reactions Static Standing Balance Ability Good Dynamic Standing Balance Ability Fair Device Used std walker M5 PT-IP Objective Assessments Start: 12/23/20 13:45 Freq: NEEDED Status: Active Protocol: Document 12/24/20 09:50 AB (Rec: 12/24/20 13:18 AB [email or web address]) Orientation Orientation/Cognition Level of Alertness Alert Orientation Name,Age,Birthday,Month,Date, Year,Day of Week,Place, Situation Language Function Ability No Deficits Noted Safety Awareness Understands Safety Issues Memory Description No Deficits Noted Gross Range of Motion Lower Extremity ROM Assessment Within Functional Limits Strength Lower Extremity Strength Assessment Left Impaired Hip 4-/5 Knee 4+/5 Coordination Assessment Gross Coordination Gross Coordination WNL Sensation Assessment Sensation Gross Sensation WNL Muscle Tone Muscle Tone WNL Yes M6 PT-IP Treatment Start: 12/23/20 13:45 Freq: NEEDED Status: Active Protocol: Document 12/24/20 09:50 AB (Rec: 12/24/20 13:18 AB [email or web address]) Physical Therapy Treatment Education Education Provided Precautions,Weight Bearing Status,Post-Op Packet,Safety M7 PT-IP Assessment and Plan Start: 12/23/20 13:45 Freq: NEEDED Status: Active Protocol: Document 12/24/20 09:50 AB (Rec: 12/24/20 13:18 AB [email or web address]) PT Summary Assessment and Plan Potential Rehabilitation Potential Good Status of Condition at Evaluation Stable Summary Impairments Pain,ROM,Strength,Balance, Coordination,Sensation,Tone, Cognition,Bed Mobility, Transfers,Gait,Activity Tolerance Assessment Summary pt requiring SBA with mobility using standard walker. pt plans to go home and spouse to assist him. pt is set up for outpt PT. Goals Bed Mobility Goal Independent Transfer Goal Independent Gait Goal Independent Gait Distance 200 Other Goals ambulated using standard walker up/down 3 steps L rail/SPC mod i Days to Meet Goals 3 Frequency of Treatment Frequency Of Treatment Twice a Day Treatment Plan Physical Therapy Treatment Plan Bed Mobility Training,Transfer Training,Gait Training, Therapeutic Exercise,Balance Retraining,Post Op Education, Discharge Planning,Hot or Cold Pack,Neuromuscular Re-ed, Coordination Retraining,Manual Therapy Precautions Anterior Hip Precautions No Hip Extension,No Hip External Rotation Recommendations To Nursing Amount of Assist Needed Standby Assistance Discharge Recommendations PT Discharge Recommendations Home with Assistance, Outpatient PT Transportation Needs at Discharge Private Vehicle
--- NOTE | 2020-12-24 11:42 | PM.DS.1 ---
History of Present Illness History of Present Illness Date Patient Seen: 12/24/20 Time Patient Seen: 11:42 Chief complaint: OPB Narrative: Refer to previous HPI. Discharge Providers Provider Discharge Date: 12/24/20 Primary care physician: Nikolas Regalado MD Consults: 12/23/20 07:37 Consult to Anesthesiology Routine Comment: Consulting Provider: Anesthesiologist Reason for consultation: Regional block for post operative pain control 12/23/20 10:11 Consult to Discharge Planning Routine Comment: Consult to Physical Therapy Evaluate & Treat Comment: Physician Instructions: post op JAYLEN protocol Consult to Respiratory Therapy Evaluate & Treat Comment: Physician Instructions: Evaluate and treat Discharge provider: Yaniv Cullen PA-C Summary Hospital Course Discharge Diagnosis: Left hip osteoarthritis Status post left anterior total hip arthroplasty Hospital Course: To the hospital following the above-listed procedure for the above-listed diagnosis. Following the procedure the patient has been convalescing appropriately in his pain has been managed with his current pain management regimen. Aquacel dressing over the incision site has remained clean dry and intact following surgery. Aspirin 81 mg twice daily has been administered for DVT prophylaxis along with the assistance of sequential compression devices. Patient has successfully worked on ambulation with the assistance of a front wheeled walker with physical therapy. He has remained weight-bearing as tolerated with the assistance of a front wheeled walker, standard total hip replacement protocol, anterior hip precautions. Status at Discharge Cognitive/behavioral status at discharge: oriented Functional status at discharge: uses cane/walker Overall status at discharge: patient is progressing back to baseline Exam Vital Signs (past 8 hours): - 12/24/20 04:05 12/24/20 04:17 12/24/20 07:33 Temperature 97.8 F 98.6 F Pulse Rate 83 86 77 Respiratory Rate 16 16 Blood Pressure 134/73 118/69 124/65 Pulse Oximetry 97 98 12/24/20 08:40 Temperature Pulse Rate 77 Respiratory Rate Blood Pressure 124/65 Pulse Oximetry Oxygen Delivery Method Room Air Oxygen Flow Rate 0 Narrative Exam Narrative: 60-year-old male postop day 1 status post left total hip arthroplasty anterior approach. Patient is resting comfortably in bed, is in no acute distress, is alert and oriented x3. Skin is warm and dry, skin surrounding the incision site is free of erythema, warmth, induration, or discharge. Aquacel dressing over the incision site is clean, dry, and intact. Good sensation appreciated throughout the bilateral lower extremities light touch. Ankle dorsiflexion, plantar flexion, eversion, inversion performed bilaterally without difficulty or discomfort. DP pulses palpated. Calves soft nontender, negative Homans sign. No other signs of DVT appreciated. Const General: cooperative, healthy appearing and comfortable Resp Effort & Inspection: normal respiratory effort and able to speak in complete sentences Skin General: no rashes or lesions noted Objective Labs Result Diagrams: 12/24/20 06:15 Labs: Laboratory Results - last 24 hr 12/24/20 06:15 Hgb 10.4 L Hct 31.8 L [facility] Medical History Bilateral primary osteoarthritis of hip Hepatic steatosis (11/24/20) HLD (hyperlipidemia) HTN (hypertension) Surgical History History of appendectomy History of total right hip arthroplasty (09/09/20) Social History household members: spouse Smoking Status: Never smoker alcohol intake: current Discharge Assessment & Plan Assessment and Plan Assessment: Patient is doing well and is stable. Plan of Treatment: Patient is to continue outpatient physical therapy following discharge from hospital. First postoperative visit in clinic is scheduled for 2 weeks following discharge. Current pain management regimen is to be continued as it is adequately controlled the patient's pain level. Aspirin 81 mg twice daily is to be continued for 6 weeks for DVT prophylaxis. Patient is to remain weight-bearing as tolerated with the assistance of a front wheeled walker. Standard total hip replacement protocol, anterior hip precautions. Aquacel dressing over the incision site is to remain clean, dry, and intact for 2 weeks. Contact the clinic if the dressing becomes damaged or soiled. Patient is to contact clinic with any concerns or questions. Any signs of increased redness, swelling, warmth, pain, or discharge from around the incision site should be reported to the clinic. Discharge Plan Discharge Plan Patient Disposition: Home Provider Discharge Comment: Patient cleared for discharge pending PT clearance. Discharge orders & Medications Discharge Orders: Discharge (Order); Ordered 12/24/20 Ordered By: Yaniv Cullen Prescriptions: New acetaminophen 325 mg Tablet 650 mg PO TID Qty: 90 RF: 0 aspirin 81 mg Tablet,Delayed Release (Dr/Ec) 81 mg PO BID Qty: 90 RF: 0 ibuprofen 400 mg Tablet 400 mg PO Q4HR Qty: 90 RF: 0 oxycodone 5 mg Tablet 10 mg PO Q3HR PRN (Reason: Pain, Severe (7-10)) Qty: 42 RF: 0 Continued lisinopril 20 MG tablet 20 mg PO DAILY Qty: 0 RF: 0 simvastatin 10 MG tablet 10 mg PO DAILY Qty: 0 RF: 0 ibuprofen 200 mg Capsule 200 mg PO Q6H PRN (Reason: Pain) RF: 0 aspirin 81 mg Tablet,Delayed Release (Dr/Ec) 81 mg PO BID Qty: 90 RF: 0 oxycodone 5 mg Tablet 5 mg PO Q4-5H PRN (Reason: Pain, Moderate (4-6)) Qty: 60 RF: 0 Follow up/Referrals: Nikolas Regalado MD [Primary Care Provider] - Diet/Activity/Treatments Diet: Diet as Tolerated and Regular Activity: Weight-bearing as tolerated with the assistance of a front wheeled walker. Anterior hip precautions, standard total hip replacement protocol. Skin/Wound/Dressing Care Report to your healthcare provider any signs of infection, such as:: chills, fever, night sweats, increased pain, unusual drainage and unusual redness Dressing: Aquacel dressing over the incision site is to remain clean, dry, and intact for 2 weeks. Contact clinic if the dressing becomes damaged or soiled. Other wound treatment: Avoid placing topical ointments over the incision site. Avoid soaking the incision site. Visit Report/Discharge Packet Instructions: DI for Hip Replacement Stand Alone Forms: Surgery Discharge Discharge Data Primary Care Provider: Nikolas Regalado Attending Provider: Mitch Wang VTE Deep Vein Thrombosis/Pulmonary Embolism Present on Admission: No
[2020-12-24 13:00] VITALS: BP 116/61; PULSE 73; RESP 16; TEMP 36.9; O2SAT 94
--- NOTE | 2020-12-24 15:03 | CM.DANOTE ---
Discharge Planning/Care Management DCP: assessment: case received and discussed today in Team Rounds. PT was ordered. A check in now shows that pt was cleared for home with her and with a plan for OUTPT PT and standard ortho clinic followup. No needs for d/c were identified by the care team members for this 60 year old female going home with spousal prn assist. Payer: [facility] Advanced directive, confirm from FAMILY Start: 12/23/20 11:33 Freq: Q24H Status: Discharge Protocol: Document 12/23/20 11:33 JDG (Rec: 12/23/20 11:52 JDG [id number]) Advance Directive, confirm on record Time 11:51 Person contacted Patient Copy received No Document 12/24/20 11:33 RENE (Rec: 12/24/20 12:42 RENE [id number]) Advance Directive, confirm on record Time 11:51 Person contacted Patient Copy received No Time 12:40 Person contacted Patient Copy received No CM Discharge Assessment Start: 12/24/20 15:02 Freq: Status: Active Protocol: Document 12/24/20 15:02 ITV (Rec: 12/24/20 15:03 ITV [id number]) Discharge Planning Assessment Advance Directives? Yes Advance Directives on File No History Provided By Medical Record Prior Living Arrangements House Household Members spouse Patient/Family Preference OP PT Therapy Discharge Plan Home Transportation Arrangement Spouse Referrals Initiated None needed Pre-Anesthesia Assessment Start: 12/18/20 08:29 Freq: Status: Discharge Protocol: Document 12/18/20 08:29 CAB (Rec: 12/18/20 08:46 CAB [id number]) Pre-Anesthesia Assessment PAC Comment Patient s/p RT JAYLEN 09/09/20, declines PAC phone assess for this surgery. He reports no changes to medical/medication history, no questions/concerns for surgery. Chart review only Patient Information Reviewed Via Chart Review H&P Completed Within 30 Days No: Not identified at time of chart review Comment Pre-op labs/EKG not identified . COVID screen @ 12/21/20 Primary Care Provider Nikolas Regalado Seen Specialist in Last 12 Months Yes Specialist Seen Orthopedist Comment Med clearance requested by surgeon, not identified Primary Language Algerian Preferred Language Algerian Chief Underwriter Required No Height 180.34 cm Weight 92.986 kg Body Mass Index (BMI) 28.5 Hx Anesthesia Reactions No Hx Family Anesthesia Reaction No Hx Malignant Hyperthermia No Hx Blood Transfusion Reaction No Anesthesia Review Requested No Automatic Lehr Operator No alcohol intake current alcohol intake frequency a few times a month Smoking Status Never smoker Substance Use Type does not use Pain Present Pain Reported Musculoskeletal Symptoms Difficulty Walking,Joint Pain Patient is completely paralyzed or No completely immobile Mental Status Oriented to own ability Hx Sleep Apnea No CPAP/BIPAP use not prescribed Currently Taking a Beta Marisa No Anti-Coagulant Therapy Yes: ASA 81mg BID s/p RT JAYLEN Has a Interpreter And Translator No Cardiac Testing No Hx Pacemaker/ICD No Pacemaker Rep Required? No Urinary Catheter Present No Hx Urinary Self Catheterization No Diabetes No Presence of External or Internal Medical No Devices Marital Status Lives With spouse Patient Discharge Plan Description Return Home Do You Have Any Spiritual Beliefs That No May Affect Your HC Choices? Do You Have Any Cultural Practices That No May Affect Your HC Choices? Emergency Contact Name Julia Ferreiranon- significant other Emergency Contact Advance Directives? Yes Advance Directives on File No Power of Commercial Art Instructor Yes Power of Commercial Art Instructor Name Julia Power of Commercial Art Instructor
== END 2020-12-24 14:40 | disposition home or self-care (01) ==
LOC: OR 10:16 → AC 10:16
PROVIDERS: PCP Internal Medicine; Referring Provider Orthopaedic Surgery Adult Reconstructive Orthopaedic Surgery; Visit Provider Orthopaedic Surgery Adult Reconstructive Orthopaedic Surgery
PROC: (CPT 27130; principal; 2020-12-23 07:45)
DX: M16.12 Unilateral primary osteoarthritis, left hip (principal); M25.752 Osteophyte, left hip; I10 Essential (primary) hypertension
CPT/HCPCS: 27130; 36415; 72170; 76000; 85014; 85018; 94760; 97161; C1776; J0690; J1100; J1885; J2250; J2270; J2274; J2405; J2704

== ENCOUNTER 2023-01-26 12:21 | Day surgery (SDC) | payer OTHER, SELFPAY ==
[2022-08-23 15:54] VITALS: BMI 28.5
[2023-01-26 12:41] VITALS: BP 170/104; PULSE 84; RESP 18; TEMP 35.9; O2SAT 97; BMI 29.2
[2023-01-26] MEDS: LACTATED RINGERS 1,000 ML 84 ML IV (12:50)
--- NOTE | 2023-01-26 13:36 | P.HP_ITS ---
History of Present Illness History of Present Illness Date Patient Seen: 01/26/23 Time Patient Seen: 13:36 Chief complaint: SD Narrative: Navi is a 62-year-old man who is here for colonoscopy. His last 1 was in 2017 and he did not have polyps. He did have polyps at his first colonoscopy. No family history of colon cancer. [facility] Medical History (Updated 08/23/22 @ 15:53 by Merrick Jorgensen MD) Bilateral primary osteoarthritis of hip Essential hypertension Hayfever Hepatic steatosis (11/24/20) History of adenomatous polyp of colon Mixed hyperlipidemia Surgical History Anesthesia History of appendectomy History of total right hip arthroplasty (09/09/20) Social History household members: spouse Smoking Status: Never smoker alcohol intake: current Meds Home Medications and Allergies Home Medications Medication Instructions Recorded Confirmed Type aspirin 81 mg tablet,delayed 81 mg PO DAILY 02/24/22 01/26/23 History release lisinopril 20 mg tablet 20 mg PO DAILY #90 tabs 08/16/22 01/26/23 Rx simvastatin 20 mg tablet 20 mg PO DAILY #90 tabs 08/16/22 01/26/23 Rx sodium,potassium,mag sulfates 17.5 See Rx Instructions PO .COMPLEX 01/24/23 Rx gram-3.13 gram-1.6 gram oral soln #354 mL (Suprep Bowel Prep Kit) Allergies Allergy/AdvReac Type Severity Reaction Status Date / Time No Known Drug Allergies Allergy Verified 01/26/23 12:37 Exam Vital Signs (past 8 hours): - 01/26/23 12:41 Temperature 96.7 F L Pulse Rate 84 Respiratory Rate 18 Blood Pressure 170/104 H Pulse Oximetry 97 Oxygen Delivery Method Room Air Oxygen Delivery Method Room Air Const General: healthy appearing Assessment & Plan Assessment and plan (1) History of adenomatous polyp of colon: Status: Acute Plan We reviewed the risks and benefits of colonoscopy for history of colon polyps and he would like to proceed.
--- NOTE | 2023-01-26 14:09 | PM.OP.COLON ---
Operative Date/Time/Diagnoses Date of procedure: 01/26/23 Time of procedure: 14:09 Pre-op diagnosis: Colon cancer screening Post-op diagnosis: same Procedure & Clinicians Study performed: Colonoscopy Same procedure as scheduled: Yes Surgeon: Anival Sutherland Procedure Notes Procedure in detail: Surgeon: Anival Sutherland MD Anesthesia: Christopher Thurston CRNA Procedure: The patient was brought to the endoscopy suite, placed in left lateral decubitus position. The patient was connected to monitoring devices. A time-out was performed. Sedation was administered. Once the patient was adequately sedated, a digital rectal exam was performed and was normal. The scope was then inserted and advanced to the cecum where the appendiceal orifice was identified and photographed. The scope was then slowly withdrawn over greater than 6 minutes. The mucosa was thoroughly inspected. No abnormalities were seen. The scope was retroflexed in the rectum. No abnormalities were seen. The scope was straightened and removed. The patient was awakened and brought to recovery. Scope withdrawal time: 7 minutes Sedation time: 12 minutes EBL: 0 Findings: Normal colon Post-procedure Recommendations: Colonoscopy in 10 years Disposition: PACU
[2023-01-26 14:12] VITALS: BP 125/77; PULSE 68; RESP 21; TEMP 36; O2SAT 94
[2023-01-26 14:17] VITALS: BP 126/73; PULSE 63; RESP 25; O2SAT 94
[2023-01-26 14:22] VITALS: BP 140/73; PULSE 68; RESP 19; O2SAT 94
[2023-01-26 14:27] VITALS: BP 131/95; PULSE 67; RESP 15; O2SAT 99
== END 2023-01-26 15:15 | disposition home or self-care (01) ==
PROVIDERS: PCP Internal Medicine; Referring Provider Surgery; Visit Provider Surgery
PROC: 0DJD8ZZ Inspection of Lower Intestinal Tract, Via Natural or Artificial Opening Endoscopic (ICD-10-PCS; CPT 45378; principal; 2023-01-26 13:30)
DX: Z12.11 Encounter for screening for malignant neoplasm of colon (principal)
CPT/HCPCS: 45378; J2704

== ENCOUNTER → 2023-08-24 16:06 | Outpatient (CLI) | payer OTHER, SELFPAY ==
[2022-08-23 15:54] VITALS: BMI 28.5
[2023-08-24 17:27] LABS: Hemoglobin A1C% w Est Avg Glu 9.5 % (4.0-6.0)
== END ==
LOC: LAB 16:08
PROVIDERS: PCP Internal Medicine; Referring Provider Internal Medicine; Visit Provider Internal Medicine
DX: E11.9 Type 2 diabetes mellitus without complications (principal)
CPT/HCPCS: 36415; 83036

== ENCOUNTER → 2023-10-11 14:49 | Outpatient (CLI) | payer OTHER, SELFPAY ==
[2023-08-28 16:39] VITALS: BMI 28.5
--- NOTE | 2023-10-29 17:22 | DIAB.MNT ---
Initial Diabetes Medical Nutrition Therapy Assessment Name: Navi Sarah Date: 10/11/23 Time: 330-627p Dx: Type II Diabetes Marko presents today for initial DM visit. Reports unsure about FH of DM. Newly dx 08/2023 with recent hgA1c of 9.5%. Not taking Metformin due to SE, ie diarrhea. Reports goal of weight loss. Wt goal of 180-185#. Endorses h/o eating whatever he wants but no negative impact due to staying physically active. Hip pain x 10 years ago reduced physical activity. Endorses inc in sweets. Worries about winter time with sweets and donuts. Uses BP cuff at home and recently BP well managed. Diet Recall: 545a: oatmeal OR eggs with veg and ham OR 1 pancake with 1 TBS syrup and 1c dry raisin bran cereal 1130a-12p: wrap with veg, cheese, meat, almonds, carrots, fruit x 1.5c OR pizza +/- ham/cheese avocado sandwich 530-6p: 1 slice pizza with salad OR salad wit hprotein water, coffee, black, beer (1x per week) No snacks Got rid of cookies Sees PCP in December. Anthropometrics: Ht: 5'11 Wt: 212# 08/2023 Physical Activity: walk 1 mi after lunch q day +/- morning walk x 3/4 mi, resistance training 6 days per week and 15 min walk after dinner. Self-Monitoring Blood Glucose: Bought meter out of pocket. Checks 1x per week on Sundays FBG or post dinner. FBG 89, 103 mg/dl and post dinner 130 mg/dl. Limited readings for review, but all in goal. Diabetes Medications: None Pertinent Labs: HgA1c 9.5% 08/2023 Past Medical History: (Last Updated 08/24/23 @ 15:45 by Merrick Jorgensen MD) Bilateral primary osteoarthritis of hip R>L Essential hypertension Hayfever Hepatic steatosis (11/24/20) By abdominal US/abnormal LFTs History of adenomatous polyp of colon Mixed hyperlipidemia Type 2 diabetes mellitus Nutrition Rx: Carbohydrates: Meal:45g Snack:15-30g Nutrition Diagnosis: - Inconsistent protein intake r/t nutrition knowledge deficit aeb diet recall and pt report and new dx - Excessive CHO intake r/t nutrition knowledge deficit aeb diet recall and pt report and new dx Intervention: This participant was very receptive. Provided appropriate educational handouts. Discussed the following topics: Completed intake assessment. Discussed barriers to care. Pathophysiology of T2DM HgA1c, its correlation to blood glucose numbers, and rationale for goal Importance of self-monitoring, how often, and when to check. Suggested checking at different times to evaluate meals Plate Method, impact of macronutrients on blood sugar, meal timing, carbohydrate counting, pairing macronutrients and spreading out carbohydrates for better blood glucose management Recommended servings for carbohydrates at meals and snacks [facility] [place] [facility] nutrition Brainstormed appropriate meal plan based on food preferences Role of physical activity and following provider guidelines for safety Created SMART goals for patient self-care and success. Goals: Add protein to pancakes Choose pancakes OR cereal Check BG 1-2 hr post breakfast on Monday Follow-up: ROSA MAYERS follow-up in December per pt request, after next hgA1c. Pt would like to see if his current regimen is working, and if not will review and make changes with RD next visit. Ayaka Pulido, ROSA, RIANA Certified Diabetes Care and Financial Analyst Intern P: [phone] Thank you for this referral
== END ==
PROVIDERS: PCP Internal Medicine; Referring Provider Internal Medicine
DX: E11.9 Type 2 diabetes mellitus without complications (principal); Z71.3 Dietary counseling and surveillance
CPT/HCPCS: 97802

== ENCOUNTER → 2023-12-22 15:15 | Outpatient (CLI) | payer OTHER, SELFPAY ==
[2023-12-11 16:09] VITALS: BMI 28.5
--- NOTE | 2024-01-11 13:47 | DIAB.MNTFU ---
Follow-up Diabetes Medical Nutrition Therapy Assessment Name: Navi Sarah Date: 12/22/23 Time: 330-4p Dx: Type II Diabetes Marko presents today for follow-up DM visit. Has made a lot of diet changes. Feels he just has to have the motivation to stick to it. Found traveling was difficult with food choices, but stayed conscious of CHO intake. States his biggest concern is too much wt loss. Down to 175# per report. Goal wt 175-180#. Wants to maintain and not lose any more wt. Some leg cramps, added electrolytes without CHO. Eating avocados, likes some nuts (almonds). Interested in protein shake. Plans to try some oatmeal and check BG, needs to plan for camping trip and easy meals. States his next focus is on reducing LDL. [place] labs in August indicated 112 LDL. Diet Recall: 6a: oatmeal with ham OR eggs, ham, and veggies OR 1 pancake and ham sn: nothing or apple or cheese 1130a-12p: wrap with veg, cheese, meat, carrots, fruit x 1-1.5c OR sandwich on ww bread sn: nothing or sausage jerky x2 530-6p: salad with protein OR pizza 2 slices with added lean protein-- switching to thin crust sn: nothing or celery and pb water, +/- coffee black, green tea, beer (1x per week) Anthropometrics: Ht: 5'11 Wt: 183# 12/2023 PCP office (home wt 175# recently) 212# 08/2023 Physical Activity: walk 4x per day, resistance training 6 days per week Self-Monitoring Blood Glucose: Bought meter out of pocket. Checks 1x per week on Sundays FBG or post dinner. FBG 100-110 mg/dl and post dinner 120-130 mg/dl. Diabetes Medications: None Pertinent Labs: HgA1c 9.5% 08/2023 5.9% 11/2023 Past Medical History: (Last Updated 08/24/23 @ 15:45 by Merrick Jorgensen MD) Bilateral primary osteoarthritis of hip R>L Essential hypertension Hayfever Hepatic steatosis (11/24/20) By abdominal US/abnormal LFTs History of adenomatous polyp of colon Mixed hyperlipidemia Type 2 diabetes mellitus Nutrition Rx: Carbohydrates: Daily: Meal: Snack: Nutrition Diagnosis: Intervention: This participant was very receptive. Provided appropriate educational handouts. Discussed the following topics: Recent blood sugar results and trends Protein shakes, what to look for Fiber sources Saturated fat intake and heart health and LDL Making changes sustainable Created SMART goals for patient self-care and success. Goals: Add protein to pancakes- met Choose pancakes OR cereal- met Check BG 1-2 hr post breakfast on Monday- met Check BG after oatmeal- new Add 1 snack per day with nuts or pb- new Follow-up: ROSA MAYERS follow-up prn. States he feels confident he can continue changes for BG management. Encouraged him to call or message with questions or future follow-up needs. He agreed. Ayaka Pulido RDN, [facility] Certified Diabetes Care and Sueding Machine Tender P: [phone] Thank you for this referral
== END ==
PROVIDERS: PCP Internal Medicine; Referring Provider Internal Medicine
DX: E11.9 Type 2 diabetes mellitus without complications (principal); Z71.3 Dietary counseling and surveillance
CPT/HCPCS: 97803